=== PATIENT | female | born 1945 | race Caucasian/White ===

== ENCOUNTER 2024-12-08 12:33 | Outpatient (CLI) | payer OTHER, SELFPAY ==
--- NOTE | 2024-12-08 13:00 | CRLHL7_ITS ---
For Patients: As a result of the Century Cures Act, medical imaging exams and procedure reports are released immediately into your electronic medical record. You may view this report before your referring provider. If you have questions, please contact your health care provider. Indication: Pain right upper quadrant and right lower quadrant of the abdomen; surveillance pancreatic cyst Comparison: None Technique: MRCP; 3D reformations; precontrast T1 and T2 weighted imaging; T2 haste imaging; diffusion-weighted imaging; in- and out of phase imaging; postcontrast imaging including subtraction; 15 cc of dotarem contrast was injected IV FINDINGS: A 1.9 x 1.4 cm simple hepatic cyst in segment V of the liver. No focal hepatic or splenic pathology. A 1.2 x 0.7 cm cystic lesion distal body of the pancreas communicating with the pancreatic duct with high signal on the precontrast T2 haste imaging and low signal on the precontrast T1 weighted imaging without enhancement post contrast administration; rule out side-branch IPMN. No evidence of pancreatic ductal dilatation. Gallbladder is unremarkable. No adrenal pathology. Dilated intrarenal collecting systems both kidneys without any dilatation of the ureters on either side. Suggest obtaining CT urogram for further assessment. No retroperitoneal lymphadenopathy. No evidence of abdominal ascites. IMPRESSION: 1. A 1.2 x 0.7 cm cystic lesion distal body of the pancreas; rule out side-branch IPMN; follow-up MRCP and MRI of the pancreas in 12 months suggested. 2. A 1.9 x 1.4 cm simple hepatic cyst in segment 3 of the liver. 3. Dilated renal collecting system bilateral; suggest obtaining CT urogram for further assessment. Dictated by Jim Portillo MD @ 12/09/2024 12:53:20 PM (Electronically Signed)
== END 2024-12-08 12:34 | disposition home or self-care (01) ==
LOC: MRI 12:33
PROVIDERS: PCP Internal Medicine; Visit Provider Internal Medicine
DX: R10.11 Right upper quadrant pain (principal); K86.2 Cyst of pancreas; K76.89 Other specified diseases of liver; R10.31 Right lower quadrant pain
CPT/HCPCS: 74183; A9575